=== PATIENT | male | born 1980 | race African-American/Black ===

== ENCOUNTER 2021-03-08 19:07 | Observation (INO) | payer OTHER, BC ==
[~2021-03-08 19:07] MED LIST: Iopamidol-370 76% 500 ML 1 ML ONE
[2021-03-08 19:45] LABS: Hemoglobin 14.7 g/dL (14.0-18.0); Mean Corpuscular HGB CONC 33.8 g/dL (32.0-36.0); Mean Corpuscular Hemoglobin 30.6 pg (27.0-31.0); Mean Corpuscular Volume 90.4 fL (78.0-98.0); Mean Platelet Volume 7.3 fL (7.4-10.4); Platelet Count 231 thou/uL (130-400); Red Blood Cell (RBC) Count 4.81 mill/uL (4.70-6.10); White Blood Cell (WBC) Count 8.7 thou/uL (4.8-10.8)
[2021-03-08] MEDS ORDERED: ceFAZolin 2 GM/DEX 5% 100 ML BAG ONE (19:51)
[2021-03-08] MEDS ORDERED: Boostrix 0.5 ML (Tdap) VIAL ONE (19:51)
[2021-03-08] MEDS ORDERED: Lidocaine 1% PF 5 ML VIAL ONE (19:51)
[2021-03-08 19:53] LABS: INR-International Normal Ratio 1.1; PTT 24.4 sec (22.9-36.1); Prothrombin Time 14.3 sec (12.0-14.7)
[2021-03-08 19:57] LABS: Band 1 % (5-11); Lymphocytes 58 % (21-51); MDiff Complete? YES; Monocytes 3 % (0-10); Neutrophil 31 % (42-75); Platelet Morphology Comment Appears Adequate; RBC Morphology Normal; Reactive Lymphocytes 7 % (0-10)
[2021-03-08 20:03] LABS: ALT (SGPT) 25 U/L (8-55); AST (SGOT) 22 U/L (5-34); Albumin 4.1 g/dL (3.5-5.0); Alkaline Phosphatase 64 U/L (40-110); Anion Gap 13 mmol/L (10-20); BUN (Urea Nitrogen) 14 mg/dL (8.9-20.6); Bilirubin, Total 0.3 mg/dL (0.2-1.2); Calc. Creatinine Clearance 0 mL/min (70-130); Carbon Dioxide 21 mmol/L (22-29); Chloride 105 mmol/L (98-107); Globulin 3.2 g/dL (2.4-3.5); Glucose 240 mg/dL (70-105); Potassium 3.6 mmol/L (3.5-5.1); Protein, Total 7.3 g/dL (6.0-8.3); Sodium 135 mmol/L (136-145)
[2021-03-08 20:04] LABS: Alcohol 245 mg/dL (Less than 10)
[2021-03-08] MEDS ORDERED: Insulin Regular 300 UNITS/3 ML VIAL SC PRN ×2 (20:53)
[2021-03-08] MEDS ORDERED: Dextrose 50% Abboject 50 ML SYRINGE SLOW IVP PRN (20:53)
[2021-03-08] MEDS ORDERED: Dextrose 5% in Water 1,000 ML IV PRN (20:53)
[2021-03-08] MEDS ORDERED: Ondansetron PF 4 MG/2 ML Vial IVP PRN (20:53)
[2021-03-08] MEDS ORDERED: hydrALAZINE 20 MG/ML VIAL SLOW IVP PRN (20:53)
[2021-03-08 21:00] LABS: Phosphorus 3.5 mg/dL (2.3-4.7)
[2021-03-08 21:47] LABS: Bilirubin Negative (Negative); Blood, Urine Negative (Negative); Clarity Clear (Clear); Glucose, Urine (Dipstick) Greater than 1000 mg/dL (Negative); Ketone, Urine 10 mg/dL (Negative); Leukocyte Negative Leu/uL (Negative); Nitrite Negative (Negative); Protein, Urine (Dipstick) 20 mg/dL (Neg-Trace); Specific Gravity, Urine 1.043 (1.002-1.036); Urobilinogen Normal mg/dL (Less than 2)
[2021-03-08] MEDS ORDERED: Oxazepam 10 MG CAP PO SCH (22:00)
[2021-03-08] MEDS: Sodium Chloride 0.9% 1,000 ML IV SCH (22:34)
[2021-03-08] MEDS: Acetaminophen 500 MG TAB PO SCH (22:34)
[2021-03-08] MEDS ORDERED: Senokot S 8.6-50 MG TAB PO SCH (22:45)
[2021-03-08 23:40] VITALS: BMI 31.1
[2021-03-09 00:23] LABS: SARS-CoV-2 NAA Rapid Test Not Detected (NotDetected)
[2021-03-09] MEDS ORDERED: Sodium Chloride 0.9% 1,000 ML IV SCH (01:00)
[2021-03-09 04:04] LABS: Amphetamine Not Detected (NotDetected); Barbiturates Screen Not Detected (NotDetected); Benzodiazepine Screen Not Detected (NotDetected); Cocaine Metabolite Screen Not Detected (NotDetected); Methadone Not Detected (NotDetected); Methamphetamine Not Detected (NotDetected); Opiate Screen Not Detected (NotDetected); Oxycodone Screen Not Detected (NotDetected); Phencyclidine (PCP) Not Detected (NotDetected); THC/Cannabinoid Screen Not Detected (NotDetected); Tricyclic Screen Not Detected (NotDetected)
[2021-03-09] MEDS: traMADol HCl 50 MG TAB PO PRN ×2 (04:45→10:55)
[2021-03-09] MEDS: Acetaminophen 500 MG TAB PO SCH ×2 (04:45→10:56)
[2021-03-09] MEDS: Sodium Chloride 0.9% 1,000 ML IV SCH ×3 (04:45→15:14)
[2021-03-09 05:51] LABS: Lactic Acid 3.7 mmol/L (0.5-2.2)
[2021-03-09 05:58] LABS: Anion Gap 16 mmol/L (10-20); BUN (Urea Nitrogen) 9 mg/dL (8.9-20.6); CK (CPK) 389 U/L (30-200); Calc. Creatinine Clearance 131 mL/min (70-130); Carbon Dioxide 20 mmol/L (22-29); Chloride 105 mmol/L (98-107); Glucose 219 mg/dL (70-105); Potassium 3.9 mmol/L (3.5-5.1); Sodium 137 mmol/L (136-145)
[2021-03-09] MEDS ORDERED: Senokot S 8.6-50 MG TAB PO SCH (09:00)
[2021-03-09] MEDS ORDERED: FLU VACC QS2021-22(6MOS UP)/PF 60 MCG/0.5 ML SYRINGE IM ONE (09:00)
[2021-03-09] MEDS ORDERED: Polyethylene Glycol 3350 17 GM Packet PO SCH (09:00)
[2021-03-09] MEDS ORDERED: Insulin Regular 300 UNITS/3 ML VIAL SC SCH (11:36)
[2021-03-09 11:40] VITALS: BP 146/80; TEMP 98.3
[2021-03-09] MEDS ORDERED: Acetaminophen 500 MG TAB PO SCH (11:45)
[2021-03-09] MEDS ORDERED: Ibuprofen 200 MG TAB PO SCH (11:45)
[2021-03-09] MEDS ORDERED: traMADol HCl 50 MG TAB PO SCH (12:00)
[2021-03-09] MEDS ORDERED: Bacitracin 1 PK TOP SCH (15:00)
== END 2021-03-09 15:21 | disposition home or self-care (01) ==
LOC: EDBD 19:07 → ERS 19:07 → SURG A 20:58
PROVIDERS: ADMIT Specialist; ATTEND Specialist
DX: S05.42XA Penetrating wound of orbit with or without foreign body, left eye, initial encounter (principal); S01.312A Laceration without foreign body of left ear, initial encounter; S51.812A Laceration without foreign body of left forearm, initial encounter; E11.65 Type 2 diabetes mellitus with hyperglycemia; F10.129 Alcohol abuse with intoxication, unspecified; N17.9 Acute kidney failure, unspecified; R41.82 Altered mental status, unspecified; Z20.822 Contact with and (suspected) exposure to COVID-19; V89.2XXA Person injured in unspecified motor-vehicle accident, traffic, initial encounter
CPT/HCPCS: 36415; 36416; 70450; 70486; 70498; 71045; 71260; 72125; 74177; 80048; 80053; 80306; 80307; 82550; 83605; 83735; 84100; 85025; 85610; 85730; 86850; 86900; 86901; 90471; 90715; 96374; 96375; G0378; G0390; J2405; J7050; Q9967; U0002